=== PATIENT | female | born 1935 | race Caucasian/White ===

== ENCOUNTER 2016-10-31 11:39 | Outpatient (CLI) | payer MEDICARE ==
[2016-10-31 13:42] LABS: #Basophils 0.1 thou/uL (0.0-0.2); #Eosinphils 0.3 thou/uL (0.0-0.7); #Lymphocytes 2.2 thou/uL (1.20-3.40); #Monocytes 0.7 thou/uL (0.11-0.59); #Neutrophils 6.1 thou/uL (1.40-6.50); %Eosinophils 3.2 % (0.0-10.0); %Lymphocytes 23.2 % (21.0-51.0); %Monocytes 7.6 % (0.0-10.0); Hemoglobin 12.5 g/dL (12.0-16.0); Mean Corpuscular HGB CONC 32.3 g/dL (32.0-36.0); Mean Corpuscular Hemoglobin 28.4 pg (27.0-31.0); Mean Corpuscular Volume 87.9 fl (81.0-99.0); Mean Platelet Volume 6.1 fL (7.4-10.4); Platelet Count 245 thou/uL (130-400); RBC Distribution Width 13.9 % (11.5-14.5); Red Blood Cell (RBC) Count 4.39 mill/uL (4.20-5.40); White Blood Cell (WBC) Count 9.3 thou/uL (4.8-10.8)
[2016-10-31 14:12] LABS: Bilirubin Negative (Negative); Blood, Urine Trace (Negative); Clarity Slightly Cloudy (Clear); Glucose, Urine (Dipstick) Negative (Negative); Leukocyte Small (Negative); Nitrite Positive (Negative); Protein, Urine (Dipstick) Negative (Neg-Trace); Urobilinogen 0.2 mg/dL (0.2-1.0); pH, Urine 5.5 (5.0-9.0)
[2016-10-31 14:34] LABS: ALT (SGPT) 20 U/L (8-55); AST (SGOT) 23 U/L (5-34); Alkaline Phosphatase 96 U/L (40-150); Anion Gap 18 mmol/L (10-20); BUN (Urea Nitrogen) 13 mg/dL (9.8-20.1); Bilirubin, Total 0.5 mg/dL (0.2-1.2); Calc. Creatinine Clearance 0 mL/min (70-130); Calcium 9.3 mg/dL (7.8-10.44); Carbon Dioxide 25 mmol/L (23-31); Cardiac Risk 2.7 (Less than 4.5); Chloride 104 mmol/L (98-107); Cholesterol 176 mg/dl (< 200 Desired); Estimated GFR-MDRD 65; Globulin 2.3 g/dL (2.4-3.5); Glucose 112 mg/dL (83-110); HDL Cholesterol 66 mg/dL (>60 Neg Risk); LDL Cholesterol, Calculated 81 mg/dL; Protein, Total 6.3 g/dL (6.0-8.3); Sodium 142 mmol/L (136-145); Triglycerides 146 mg/dL (Less than 150)
[2016-10-31 14:58] LABS: Bacteria/HPF 2+ HPF (None Seen); RBC/HPF 0-3 HPF (0-3); Squamous Epithelial 0-3 HPF (0-3)
== END 2016-10-31 11:40 | disposition home or self-care (01) ==
LOC: NAVSJIPCSP 11:39
PROVIDERS: ATTEND Internal Medicine
DX: E78.5 Hyperlipidemia, unspecified (principal); K21.9 Gastro-esophageal reflux disease without esophagitis; I25.2 Old myocardial infarction; I10 Essential (primary) hypertension
CPT/HCPCS: 36415; 80053; 80061; 81003; 81015; 84443; 85025; 87086

== ENCOUNTER 2016-11-21 09:33 | Outpatient (CLI) | payer MEDICARE | END 2016-11-21 09:34 | disposition home or self-care (01) | LOC: NAVSJIPCSP 09:33 | PROVIDERS: ATTEND Internal Medicine | DX: N39.0 Urinary tract infection, site not specified (principal); I10 Essential (primary) hypertension | CPT/HCPCS: 87086 ==

== ENCOUNTER 2017-03-14 12:33 | Outpatient (CLI) | payer MEDICARE ==
--- NOTE | 2017-03-14 14:12 | RAD ---
CHEST 2 VIEWS: HISTORY: Neck strain. COMPARISON: Chest 2 views 05/03/14. FINDINGS: Loop recording device is noted over the anterior left chest wall. No pneumothorax or effusion. No f ocal airspace consolidation. Osseous structures are unremarkable. IMPRESSION: No acute intrathoracic abnormality. POS: [facility]
--- NOTE | 2017-03-14 14:22 | CT ---
CT CERVICAL SPINE WITHOUT CONTRAST: Date: 03/14/17 HISTORY: Neck strain. COMPARISON: 03/09/14. TECHNIQUE: Cervical spine CT is performed without contrast. Reformatted images are submitted for interpretation. FINDINGS: There is reversal of normal cervical lordosis. There is severe degenerative change at C5-C6 and C6-C7 . There is 3.0 mm anterolisthesis of C5 upon C6. Lateral masses of C1 and C2 articulate appropriately. Appropriate articulation of the facets. Odontoi d process is intact. Visualized soft tissue neck structures are unremarkable. Upper mediastinum and lung apices are also u nremarkable. There are varying degrees of central canal stenosis and foraminal narrowing on the basis of degenerat refugio change. Cervical spine vertebral body height is maintained. There is no fracture. Limited evaluation of the contents of the central spinal canal and neural foramina. C2-C3: No high grade central canal stenosis. Right neural foramen is patent. Mild to moderate left foraminal narrowing. Asymmetrically prominent facet hypertrophy on the left. C3-C4: Broad based disc osteophyte complex with mild central canal stenosis. Degenerative changes of bilater al uncovertebral joints. Moderate right and severe left foraminal narrowing. There is asymmetric left facet hypertrophy. C4-C5: Broad based disc osteophyte complex abuts the thecal sac. No high grade central canal stenosis. Degen erative change of bilateral uncovertebral joints results in mild right and moderate left foraminal na rrowing. Asymmetric left facet hypertrophy. C5-C6: Broad based disc osteophyte complex abuts the thecal sac. Mild to moderate central canal stenosis. De generative changes of bilateral uncovertebral joints results in moderate right and mild left foramina l narrowing. C6-C7: Broad based disc osteophyte complex abuts the thecal sac. Mild to moderate central canal stenosis. De generative changes of bilateral uncovertebral joints results in mild to moderate bilateral foraminal narrowing. C7-T1: No high grade central canal stenosis. Neural foramina are patent. Stable and likely congenital changes involving the right facet at T2. IMPRESSION: Degenerative changes of the cervical spine as above. POS: [facility]
== END 2017-03-14 12:34 | disposition home or self-care (01) ==
LOC: NAV RAD 12:33
PROVIDERS: ATTEND Internal Medicine
DX: S16.1XXA Strain of muscle, fascia and tendon at neck level, initial encounter (principal); M47.892 Other spondylosis, cervical region
CPT/HCPCS: 71020; 72125

== ENCOUNTER 2019-01-03 21:25 | Emergency (ER) | payer MEDICARE, OTHER ==
[2019-01-03 22:14] LABS: #Basophils 0.2 thou/uL (0.0-0.2); #Eosinphils 0.1 thou/uL (0.0-0.7); #Lymphocytes 1.3 thou/uL (1.20-3.40); #Monocytes 1.6 thou/uL (0.11-0.59); #Neutrophils 12.8 thou/uL (1.40-6.50); %Basophils 1.2 % (0.0-1.0); %Eosinophils 0.4 % (0.0-10.0); %Lymphocytes 8.2 % (21.0-51.0); %Monocytes 9.8 % (0.0-10.0); %Neutrophils 80.4 % (42.0-75.0); Hemoglobin 12.5 g/dL (12.0-16.0); Mean Corpuscular HGB CONC 30.3 g/dL (32.0-36.0); Mean Corpuscular Hemoglobin 25.5 pg (27.0-31.0); Mean Corpuscular Volume 84.1 fL (78.0-98.0); Mean Platelet Volume 6.1 fL (7.4-10.4); Platelet Count 423 thou/uL (130-400); RBC Distribution Width 14.7 % (11.5-14.5); Red Blood Cell (RBC) Count 4.93 mill/uL (4.20-5.40); White Blood Cell (WBC) Count 15.9 thou/uL (4.8-10.8)
[2019-01-03 22:29] LABS: ALT (SGPT) 51 U/L (8-55); AST (SGOT) 128 U/L (5-34); Albumin 3.6 g/dL (3.4-4.8); Alkaline Phosphatase 759 U/L (40-150); Anion Gap 17 mmol/L (10-20); BUN (Urea Nitrogen) 22 mg/dL (9.8-20.1); Bilirubin, Total 1.4 mg/dL (0.2-1.2); CK (CPK) 103 U/L (29-168); Calc. Creatinine Clearance 0 mL/min (70-130); Carbon Dioxide 23 mmol/L (23-31); Chloride 99 mmol/L (98-107); Estimated GFR-MDRD 47; Globulin 3.8 g/dL (2.4-3.5); Glucose 117 mg/dL (83-110); Potassium 3.9 mmol/L (3.5-5.1); Protein, Total 7.4 g/dL (6.0-8.3); Sodium 135 mmol/L (136-145)
[2019-01-03 22:34] LABS: Calcium 13.6 mg/dL (7.8-10.44)
[2019-01-03 23:02] LABS: Bilirubin Small (Negative); Blood, Urine Negative (Negative); Clarity Clear (Clear); Glucose, Urine (Dipstick) Negative (Negative); Leukocyte Trace (Negative); Nitrite Positive (Negative); Protein, Urine (Dipstick) Negative (Neg-Trace)
[2019-01-03 23:06] LABS: RBC/HPF 0-3 HPF (0-3)
[2019-01-03 23:07] LABS: Bacteria/HPF 2+ HPF (None Seen); Squamous Epithelial 0-3 HPF (0-3)
--- NOTE | 2019-01-03 23:18 | RAD ---
EXAM: Chest 2 views: HISTORY: Dyspnea COMPARISON: 03/14/2017 FINDINGS: There is a normal-sized cardiomediastinal silhouette. A cardiac monitoring device projects over the left chest wall. There is no evidence of consolidation, mass, or pleural effusion. The bones are unremarkable. IMPRESSION: No evidence of acute cardiopulmonary disease
[2019-01-03] MEDS ORDERED: Cephalexin 250 MG CAP ONE (23:37)
== END 2019-01-03 23:41 | disposition home or self-care (01) ==
LOC: NAV ERS 21:25
DX: N39.0 Urinary tract infection, site not specified (principal); R06.02 Shortness of breath; F32.9 Major depressive disorder, single episode, unspecified; E03.9 Hypothyroidism, unspecified; E83.52 Hypercalcemia; I25.2 Old myocardial infarction; I10 Essential (primary) hypertension; K21.9 Gastro-esophageal reflux disease without esophagitis; E78.5 Hyperlipidemia, unspecified; E78.00 Pure hypercholesterolemia, unspecified; Z95.5 Presence of coronary angioplasty implant and graft
CPT/HCPCS: 71046; 80053; 81003; 81015; 82550; 83880; 84443; 84484; 85025; 93005

== ENCOUNTER 2019-01-06 15:19 | Outpatient (CLI) | payer MEDICARE, OTHER ==
[2019-01-06 16:05] LABS: ALT (SGPT) 52 U/L (8-55); AST (SGOT) 136 U/L (5-34); Albumin 3.3 g/dL (3.4-4.8); Alkaline Phosphatase 629 U/L (40-150); Anion Gap 18 mmol/L (10-20); BUN (Urea Nitrogen) 21 mg/dL (9.8-20.1); Bilirubin, Total 1.8 mg/dL (0.2-1.2); Calc. Creatinine Clearance 0 mL/min (70-130); Carbon Dioxide 22 mmol/L (23-31); Chloride 96 mmol/L (98-107); Estimated GFR-MDRD 48; Globulin 3.5 g/dL (2.4-3.5); Glucose 102 mg/dL (83-110); Potassium 4.3 mmol/L (3.5-5.1); Protein, Total 6.8 g/dL (6.0-8.3); Sodium 132 mmol/L (136-145)
[2019-01-06 16:21] LABS: Calcium 12.9 mg/dL (7.8-10.44)
[2019-01-06 16:22] LABS: Mean Corpuscular HGB CONC 30.6 g/dL (32.0-36.0); Mean Corpuscular Hemoglobin 25.5 pg (27.0-31.0); Mean Corpuscular Volume 83.4 fL (78.0-98.0); Mean Platelet Volume 6.1 fL (7.4-10.4); Platelet Count 395 thou/uL (130-400); RBC Distribution Width 14.9 % (11.5-14.5); Red Blood Cell (RBC) Count 4.72 mill/uL (4.20-5.40); White Blood Cell (WBC) Count 22.7 thou/uL (4.8-10.8)
--- NOTE | 2019-01-06 16:55 | CT ---
Exam: Chest CT with contrast Abdomen CT with contrast Pelvic CT with contrast HISTORY: Weight loss Correlation: None COMPARISON: None FINDINGS: Chest CT: Mediastinum: No mass, lymphadenopathy or hematoma Aorta: Normal caliber. Minimal atherosclerosis Heart: Normal heart size. No significant pericardial fluid Trachea and central bronchi: Patent Pleural spaces: No pleural fluid Right lung: Multiple solid nodules. [employer] enlarged solid nodule measures 0.4 cm. There is a groundglass nodule in the right upper lobe measuring 0.8 cm. Left lung:Multiple solid nodules. [employer] solid nodule in the left lower lobe measures 1.1 cm. Pneumothorax: None Abdomen CT: Gallbladder: Unremarkable Portal vein: Patent Liver: Multifocal hepatic masses replacing the majority normal hepatic parenchyma. [employer] hep atic mass in the anterior segment right hepatic lobe measures 5.8 x 4.7 cm. Given the overall extensive involving the liver, percutaneous CT-guided biopsy is recommended.. Spleen: Appropriate enhancement Pancreas: Appropriate enhancement Adrenal glands: Appropriate enhancement Lymphadenopathy: No gastrohepatic, retrocrural or periportal lymphadenopathy Kidneys: Indication the right intrarenal collecting system. The upper pole moiety is atrophic. No harris dence of right or left-sided obstructive uropathy. Hypodensities in the left or right renal cortex represent cysts measuring 1.7 x 1.5 and 2.0 x 2.2 cm respectively. There is an exophytic isodense les ion emanating from the mid pole of the right renal cortex measuring 0.8 x 0.8 cm. Bilaterally no obstructive uropathy Mesentery: There is a conglomeration of enlarged and likely necrotic lymph nodes in the left lower qu adrant, measuring 5.6 x 3.7 cm. No mesenteric free air or free fluid. Alimentary canal: Limited evaluation due to technique. No evidence of small bowel obstruction. Normal caliber ileocecal junction. Contrast and fecal material in a nondistended, nondilated colon. Diverticulosis, without evidence of diverticulitis. There is mucosal thickening involving the sigmoid colon, which is adjacent to the aforementioned lymphadenopathy. The possibility of a neoplasm of sigmoid colon cannot be excluded. Pelvis CT: Uterus and left adnexa are unremarkable. Hypodensity in the right adnexa measures 1.7 x 1.8 cm with a n attenuation coefficient of 3 Hounsfield units suggesting a right ovarian follicle. No pelvic mass, lymphadenopathy, free air or significant Osseous structures:There are no lytic or blastic lesions in the osseous IMPRESSION: 1. Multiple nodules in the lung as well as extensive masses replacing most of the normal hepatic pare nchyma suggesting metastases. Primary is uncertain but a colon cancer is favored given the enlarged lymph nodes in the left lower quadrant, adjacent to a segment of sigmoid colon with bowel wall thicke jigar. Consider colonoscopy. 2. Lesions in the liver are a amenable to percutaneous biopsy. 3. Indeterminate isodense lesion emanating from the right renal cortex. Findings conveyed to Dr. Prince Rider via [employer] 01/06/2019 at 5:06 PM Code CR Transcribed Date/Time: 01/06/2019 5:01 PM
[2019-01-06 20:22] LABS: Band 1 % (5-11); Lymphocytes 9 % (21-51); MDiff Complete? YES; Monocytes 7 % (0-10); Neutrophil 83 % (42-75); Platelet Morphology Comment Appears Adequate; RBC Morphology Normal
== END 2019-01-06 15:20 | disposition home or self-care (01) ==
LOC: NAV RAD 15:19
PROVIDERS: ATTEND Internal Medicine
DX: R63.4 Abnormal weight loss (principal); R49.0 Dysphonia; K76.89 Other specified diseases of liver; R91.8 Other nonspecific abnormal finding of lung field; R59.0 Localized enlarged lymph nodes; N32.89 Other specified disorders of bladder; N28.9 Disorder of kidney and ureter, unspecified
CPT/HCPCS: 36415; 71260; 74177; 80053; 85025

== ENCOUNTER 2019-01-08 15:01 | Inpatient (IN) | payer MEDICARE, OTHER ==
[2019-01-08] MEDS: Dextrose 5 % And 0.9 % NaCl 1,000 ML IV SCH (18:01)
[2019-01-08] MEDS: Mometasone/Formoterol 60 PUFF AER INH SCH (18:02)
[2019-01-08] MEDS: Famotidine 20 MG TAB PO SCH (20:39)
[2019-01-08] MEDS: Piperacillin/Tazobactam 2.25 GM in Sodium Chloride 0.9% 100 ML IVPB SCH (20:41)
[2019-01-08 20:45] LABS: #Basophils 0.2 thou/uL (0.0-0.2); #Eosinphils 0.1 thou/uL (0.0-0.7); #Lymphocytes 1.2 thou/uL (1.20-3.40); #Neutrophils 14.5 thou/uL (1.40-6.50); %Basophils 0.8 % (0.0-1.0); %Eosinophils 0.5 % (0.0-10.0); %Lymphocytes 6.9 % (21.0-51.0); %Monocytes 11.1 % (0.0-10.0); %Neutrophils 80.7 % (42.0-75.0); Hemoglobin 10.3 g/dL (12.0-16.0); Mean Corpuscular HGB CONC 30.8 g/dL (32.0-36.0); Mean Corpuscular Hemoglobin 25.4 pg (27.0-31.0); Mean Corpuscular Volume 82.4 fL (78.0-98.0); Mean Platelet Volume 5.7 fL (7.4-10.4); Platelet Count 409 thou/uL (130-400); RBC Distribution Width 15.2 % (11.5-14.5); Red Blood Cell (RBC) Count 4.06 mill/uL (4.20-5.40)
[2019-01-08 20:59] LABS: ALT (SGPT) 47 U/L (8-55); AST (SGOT) 126 U/L (5-34); Albumin 2.8 g/dL (3.4-4.8); Alkaline Phosphatase 612 U/L (40-150); Anion Gap 15 mmol/L (10-20); BUN (Urea Nitrogen) 28 mg/dL (9.8-20.1); Bilirubin, Total 2.3 mg/dL (0.2-1.2); Calc. Creatinine Clearance 33 mL/min (70-130); Calcium 11.9 mg/dL (7.8-10.44); Carbon Dioxide 24 mmol/L (23-31); Chloride 98 mmol/L (98-107); Estimated GFR-MDRD 43; Globulin 3.1 g/dL (2.4-3.5); Glucose 129 mg/dL (83-110); Potassium 4.2 mmol/L (3.5-5.1); Protein, Total 5.9 g/dL (6.0-8.3); Sodium 133 mmol/L (136-145)
[2019-01-09] MEDS: Mometasone/Formoterol 60 PUFF AER INH SCH ×2 (05:17→18:04)
[2019-01-09] MEDS: Piperacillin/Tazobactam 2.25 GM in Sodium Chloride 0.9% 100 ML IVPB SCH ×3 (05:22→20:40)
[2019-01-09] MEDS: Dextrose 5 % And 0.9 % NaCl 1,000 ML IV SCH ×2 (05:23→20:44)
[2019-01-09 08:21] LABS: #Basophils 0.2 thou/uL (0.0-0.2); #Eosinphils 0.1 thou/uL (0.0-0.7); #Lymphocytes 0.7 thou/uL (1.20-3.40); #Monocytes 1.7 thou/uL (0.11-0.59); #Neutrophils 12.8 thou/uL (1.40-6.50); %Basophils 1.1 % (0.0-1.0); %Eosinophils 0.8 % (0.0-10.0); %Lymphocytes 4.5 % (21.0-51.0); %Monocytes 10.8 % (0.0-10.0); %Neutrophils 82.7 % (42.0-75.0); Hemoglobin 11.1 g/dL (12.0-16.0); Mean Corpuscular HGB CONC 30.6 g/dL (32.0-36.0); Mean Corpuscular Hemoglobin 25.4 pg (27.0-31.0); Mean Platelet Volume 5.9 fL (7.4-10.4); Platelet Count 401 thou/uL (130-400); RBC Distribution Width 15.6 % (11.5-14.5); Red Blood Cell (RBC) Count 4.36 mill/uL (4.20-5.40); White Blood Cell (WBC) Count 15.5 thou/uL (4.8-10.8)
[2019-01-09 08:43] LABS: ALT (SGPT) 48 U/L (8-55); AST (SGOT) 126 U/L (5-34); Albumin 2.8 g/dL (3.4-4.8); Alkaline Phosphatase 625 U/L (40-150); Anion Gap 16 mmol/L (10-20); BUN (Urea Nitrogen) 25 mg/dL (9.8-20.1); Bilirubin, Total 2.2 mg/dL (0.2-1.2); Calc. Creatinine Clearance 38 mL/min (70-130); Calcium 11.2 mg/dL (7.8-10.44); Carbon Dioxide 23 mmol/L (23-31); Chloride 102 mmol/L (98-107); Estimated GFR-MDRD 50; Globulin 2.4 g/dL (2.4-3.5); Glucose 104 mg/dL (83-110); Potassium 3.3 mmol/L (3.5-5.1); Protein, Total 5.2 g/dL (6.0-8.3); Sodium 138 mmol/L (136-145)
[2019-01-09] MEDS: Fluticasone Propionate Nasal Spray 16 gm Bottle NASAL SCH (08:47)
[2019-01-09] MEDS: Enoxaparin Sodium 40 MG/0.4 ML SYRINGE SC SCH (08:48)
[2019-01-09] MEDS: Famotidine 20 MG TAB PO SCH ×2 (08:49→20:42)
[2019-01-09] MEDS: Folic Acid 1 MG TAB PO SCH (08:50)
[2019-01-09] MEDS: HYDROcodone/Acetaminophen 5/325 mg Tablet PO PRN ×2 (08:58→20:42)
[2019-01-09] MEDS ORDERED: Prevnar 13-Val Conj/PF 0.5 ML SYRINGE IM ONE (10:00)
[2019-01-10] MEDS: Mometasone/Formoterol 60 PUFF AER INH SCH ×2 (05:50→18:25)
[2019-01-10] MEDS: Piperacillin/Tazobactam 2.25 GM in Sodium Chloride 0.9% 100 ML IVPB SCH ×3 (05:55→21:07)
[2019-01-10 06:01] VITALS: BMI 22.1
[2019-01-10] MEDS: HYDROcodone/Acetaminophen 5/325 mg Tablet PO PRN ×3 (07:31→21:05)
[2019-01-10] MEDS: Fluticasone Propionate Nasal Spray 16 gm Bottle NASAL SCH (08:44)
[2019-01-10] MEDS: Enoxaparin Sodium 40 MG/0.4 ML SYRINGE SC SCH (08:45)
[2019-01-10] MEDS: Famotidine 20 MG TAB PO SCH ×2 (08:45→21:07)
[2019-01-10] MEDS: Folic Acid 1 MG TAB PO SCH (08:46)
--- NOTE | 2019-01-10 09:15 | PRG ---
DATE OF SERVICE: 01/09/2019 SUBJECTIVE: The patient states she feels slightly better with increased strength, has been eating somewhat better. Still not getting out of the bed and is having now some soreness in the right upper quadrant. OBJECTIVE: VITAL SIGNS: Shows her temperature is 98.4, pulse 73, respirations 20, O2 saturations 92% on room air, and blood pressure 121/60. LUNGS: Clear. CARDIAC: Shows regular rhythm. ABDOMEN: Soft, but with right upper quadrant tenderness. Good bowel sounds. LABORATORY DATA: White count is down slightly to 15,500, hematocrit 36, and hemoglobin 11. Sodium 138, potassium 3.3, chloride 102, bicarb 23, BUN 25, creatinine 1.05, calcium down slightly 11.2, bilirubin stable at 2.2, AST 126, ALT 48, alkaline phosphatase still elevated at 625. Intake and output shows 1323 in. The patient has been voiding in the toilet. ASSESSMENT: 1. Slowly improving deconditioning, dehydration. 2. 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 3. Coronary artery disease, asymptomatic. 4. Hypertension, controlled to goal. PLAN: 1. Discussion with Dr. Kothari. We will schedule colonoscopy in the next 2 days to determine diagnosis. 2. We will continue IV fluids. 3. We will continue IV antibiotics for possible infection and monitor closely. Prognosis is poor. The patient understands this and she is not to be resuscitated. Job ID: [id number]
[2019-01-10] MEDS: Dextrose 5 % And 0.9 % NaCl 1,000 ML IV SCH (10:37)
[2019-01-11] MEDS: Dextrose 5 % And 0.9 % NaCl 1,000 ML IV SCH ×3 (00:57→13:40)
[2019-01-11] MEDS: Piperacillin/Tazobactam 2.25 GM in Sodium Chloride 0.9% 100 ML IVPB SCH ×2 (06:06→13:39)
[2019-01-11] MEDS: Mometasone/Formoterol 60 PUFF AER INH SCH ×2 (06:06→19:07)
[2019-01-11] MEDS: HYDROcodone/Acetaminophen 5/325 mg Tablet PO PRN (08:03)
[2019-01-11] MEDS: Famotidine 20 MG TAB PO SCH (08:05)
[2019-01-11] MEDS: Folic Acid 1 MG TAB PO SCH (08:05)
[2019-01-11] MEDS: Enoxaparin Sodium 40 MG/0.4 ML SYRINGE SC SCH (08:06)
[2019-01-11] MEDS: Fluticasone Propionate Nasal Spray 16 gm Bottle NASAL SCH (08:06)
[2019-01-11] MEDS ORDERED: Dextrose 5 % And 0.9 % NaCl 1,000 ML ONE (12:59)
[2019-01-11] MEDS ORDERED: GoLYTELY 4,000 ml Bottle PO SCH (16:00)
[2019-01-11 17:05] VITALS: BP 118/57; TEMP 98.4
[2019-01-11 17:16] LABS: ALT (SGPT) 111 U/L (8-55); AST (SGOT) 429 U/L (5-34); Albumin 2.5 g/dL (3.4-4.8); Alkaline Phosphatase 469 U/L (40-150); Anion Gap 18 mmol/L (10-20); BUN (Urea Nitrogen) 26 mg/dL (9.8-20.1); Bilirubin, Total 2.3 mg/dL (0.2-1.2); Calc. Creatinine Clearance 27 mL/min (70-130); Calcium 10.8 mg/dL (7.8-10.44); Carbon Dioxide 16 mmol/L (23-31); Chloride 106 mmol/L (98-107); Estimated GFR-MDRD 34; Globulin 2.9 g/dL (2.4-3.5); Glucose 118 mg/dL (83-110); Protein, Total 5.4 g/dL (6.0-8.3); Sodium 137 mmol/L (136-145)
[2019-01-11 17:17] LABS: Anisocytosis SLIGHT = 6-15 cells (100X) (0-5/hpf); Band 3 % (5-11); Eosinophils 2 % (0-10); Hemoglobin 10.4 g/dL (12.0-16.0); Lymphocytes 12 % (21-51); MDiff Complete? YES; Mean Corpuscular HGB CONC 30.7 g/dL (32.0-36.0); Mean Corpuscular Hemoglobin 25.9 pg (27.0-31.0); Mean Corpuscular Volume 84.2 fL (78.0-98.0); Mean Platelet Volume 5.5 fL (7.4-10.4); Monocytes 11 % (0-10); Neutrophil 71 % (42-75); Platelet Count 400 thou/uL (130-400); Platelet Morphology Comment Appears Adequate; RBC Distribution Width 16.3 % (11.5-14.5); Reactive Lymphocytes 1 % (0-10); Red Blood Cell (RBC) Count 4.02 mill/uL (4.20-5.40)
--- NOTE | 2019-01-11 18:11 | PRG ---
DATE OF SERVICE: 01/11/2019 SUBJECTIVE: The patient feels better today with increased strength, eating somewhat better. She is not having as much short of breath, but now is complaining of more soreness in the right upper quadrant, not responsive to the hydrocodone 5/325. OBJECTIVE: VITAL SIGNS: Show that her temperature is 98.2, pulse 59, respirations 20, O2 saturations 91% on room air, and blood pressure 117/54. LUNGS: Clear. No rales or rhonchi. CARDIAC: Shows regular rhythm. No gallops or murmurs. ABDOMEN: Soft. Minimal right upper quadrant and left upper quadrant tenderness. ASSESSMENT: Probable cancer of the colon with necrotic lymph nodes in left lower quadrant, multiple nodules in the lung and extensive masses replacing most of the normal hepatic parenchyma. Dehydration appears to be improving slightly with creatinine down to 1.05 from 1.20, calcium down to 11.2 from 11.9. Liver function studies still significantly elevated. PLAN: 1. Increase hydrocodone to two 5/325 every 6 hours. 2. Continue IV fluids of D5 normal saline at 75 an hour. 3. Continue Zosyn 2.25 every 8 hours. 4. Schedule for colonoscopy prep to start tomorrow and colonoscopy the next day. Job ID: [id number]
[2019-01-11] MEDS ORDERED: Potassium Chloride 20 MEQ in Lactated Ringer's 1,000 ML IV SCH (18:15)
--- NOTE | 2019-01-11 18:58 | RAD ---
7PORTABLE CHEST: History: Hypoxia. Comparison: 03-12-14 FINDINGS: Heart size and mediastinum are within normal limits. The lungs are clear of any infiltrative process. There are no significant bony findings. IMPRESSION: No active intrathoracic disease. POS: [facility]
[2019-01-11] MEDS: D5 0.9% NS w/ 20 mEq KCl 1,000 ML IV SCH ×2 (19:12→19:25)
[2019-01-11] MEDS ORDERED: Sodium Chloride 0.9% 10 ML ONE (19:21)
--- NOTE | 2019-01-12 10:07 | DIS ---
DATE OF ADMISSION: 01/08/2019 DATE OF DISCHARGE: 01/11/2019 HOSPITAL COURSE: The patient is an 83-year-old white female, well known to myself with a long history of hypertension, asthmatic bronchitis, hyperlipidemia, distant coronary artery disease, who apparently had developed over the last several weeks recurrent dry cough, increasing weakness and hoarseness, dyspnea on exertion. She was seen in the ER, found to have an elevated calcium, alkaline phosphatase, and was referred to my office for further discussion to determine that she has lost 18 pounds in the last 6 months and had new complaints of change in her bowel movements with smaller pebble size bowel movements with some blood mixed. She therefore underwent a CT scan of her abdomen, chest, pelvis, which revealed thickening in the sigmoid colon with extensive necrotic lymph nodes and masses surrounding it and with significant masses replacing most of the hepatic parenchyma. She was also found to have multiple nodules in the right and left lung. She was therefore felt to possibly have a metastatic colon cancer and has referred to Dr. Kothari for colonoscopy instead of having a hepatic biopsy. He requests that she be admitted to the hospital for rehydration and this were done on January 08. At that time, her vital signs were stable with a blood pressure 110/58, respirations 18, O2 sats 100% on room air, temperature is 97.6. She was started on D5 normal saline at 75 an hour and also on Zosyn as her admission laboratory [place] [address], hematocrit of 33, hemoglobin of 10. BUN was 28, creatinine was 1.2, calcium was 11.9, AST was 126, ALT 47, total bilirubin was 2.3 and alkaline phosphatase 612. She initially improved somewhat with increasing strength, increasing appetite, became much more alert and was preparing for her colonoscopy prep. When she began to complain of some increasing right upper quadrant, left lower quadrant pain, and her hydrocodone was increased to every 6 hours. She subsequently then the next day became more lethargic, unresponsive initially with decreased respiratory rate 18, blood pressure remained stable at 133/63, pulse 67, O2 saturation dropped to 90%. She was placed on 2 L and saturation increased to 92. She did become more alert over the period of time as the pain medicine was metabolized. She at this time stated that she wished to be transferred to [facility] for more aggressive treatment as it appears she was becoming septic as her white count increased to 25,000, hematocrit 33, hemoglobin 10 despite antibiotics. Her liver function studies showed increasing ALT to 111 from admission 147, AST up to 429, bilirubin up to 0.3. Creatinine initially improved to 1.05 with an increase to 1.48. After discussion with Dr. Kothari or ship runner, he agreed that she required admission for more higher level of care, possible intensive care unit and will therefore be transferred to the hospitalist service at [facility] with consultation of Dr. Kothari. For impending sepsis, she will have her IV changed to D5 normal saline with 20 of K. Continue with 125 an hour. We will have x-ray prior to discharge and we will continue on oxygen, but we will withhold any pain medication. Her prognosis is very poor and this has been explained to the family and the patient. She is not to be resuscitated, but she does wish further aggressive care. Job ID: [id number]
== END 2019-01-11 19:36 | disposition short-term general hospital (02) | DRG 641 ==
LOC: NAV ACUTE 15:01
PROVIDERS: ADMIT Internal Medicine; ATTEND Internal Medicine
DX: E86.0 Dehydration (principal); C18.9 Malignant neoplasm of colon, unspecified; C78.7 Secondary malignant neoplasm of liver and intrahepatic bile duct; C78.02 Secondary malignant neoplasm of left lung; C78.01 Secondary malignant neoplasm of right lung; R53.81 Other malaise; Z66 Do not resuscitate; I25.10 Atherosclerotic heart disease of native coronary artery without angina pectoris; I10 Essential (primary) hypertension; E78.5 Hyperlipidemia, unspecified; D72.829 Elevated white blood cell count, unspecified; I89.8 Other specified noninfective disorders of lymphatic vessels and lymph nodes
CPT/HCPCS: 71045; 80053; 85025; 94664; J1650; J2543; J3490; J7042; J7620